=== PATIENT | female | born 1990 | race Caucasian/White ===

== ENCOUNTER 2021-07-06 11:36 | Emergency (ER) | payer OTHER ==
[~2021-07-06] VITALS: Ht 160 cm; Wt 69.0 kg
[2021-07-06 11:39] VITALS: BP 144/96
[2021-07-06 12:04] LABS: BASOPHILS % (AUTO) 0.4 % (0-1); EOSINOPHILS # (AUTO) 0.3 X10'3 (0-0.9); EOSINOPHILS % (AUTO) 3.7 % (0-6); HEMATOCRIT 42.8 % (35.0-45.0); HEMOGLOBIN 14.4 g/dl (12.0-16.0); LYMPHOCYTES # (AUTO) 1.9 X10'3 (1.1-4.8); LYMPHOCYTES % (AUTO) 22.7 % (21-51); MEAN CORPUSCULAR HEMOGLOBIN 30.5 PG (27.0-31.0); MEAN CORPUSCULAR HGB CONC 33.6 g/dL (33.0-36.5); MEAN CORPUSCULAR VOLUME 90.6 FL (78-98); MEAN PLATELET VOLUME 7.3 FL (7.4-10.4); MONOCYTES # (AUTO) 0.4 X10'3 (0-0.9); MONOCYTES % (AUTO) 5.3 % (2-12); NEUTROPHILS # (AUTO) 5.7 X10'3 (1.8-7.7); NEUTROPHILS % (AUTO) 67.9 % (42-75); PLATELET COUNT 306 X10'3 (140-440); RED BLOOD COUNT 4.72 X10'6 (4.20-5.60); RED CELL DISTRIBUTION WIDTH 12.8 % (11.5-14.5); WHITE BLOOD COUNT 8.3 X10'3 (4.5-11.0)
[2021-07-06 12:19] LABS: ALANINE AMINOTRANSFERASE 32 U/L (12-78); ALBUMIN 4.5 G/DL (3.4-5.0); ALBUMIN/GLOBULIN RATIO 1.2 (1.1-1.5); ALKALINE PHOSPHATASE 90 IU/L (46-116); ANION GAP 9 (8-16); ASPARTATE AMINO TRANSFERASE 23 U/L (10-37); BILIRUBIN,TOTAL 0.6 MG/DL (0.1-1.0); BLOOD UREA NITROGEN 11 MG/DL (7-18); BUN/CREATININE RATIO 12.2 (6.6-38.0); CALCIUM 9.5 MG/DL (8.5-10.1); CHLORIDE 102 MMOL/L (99-107); GLUCOSE 92 MG/DL (70-104); POTASSIUM 3.9 MMOL/L (3.5-5.1); SODIUM 137 MMOL/L (135-145); TOTAL CARBON DIOXIDE 25.8 MMOL/L (24-32); TOTAL PROTEIN 8.3 G/DL (6.4-8.2); eGFR 73 ML/MIN
== END 2021-07-06 13:59 | disposition home or self-care (01) ==
LOC: ER 11:36
DX: S06.0X1A Concussion with loss of consciousness of 30 minutes or less, initial encounter (principal); R55 Syncope and collapse; Z72.89 Other problems related to lifestyle; X58.XXXA Exposure to other specified factors, initial encounter; Y93.89 Activity, other specified; Y92.89 Other specified places as the place of occurrence of the external cause; Y99.8 Other external cause status
CPT/HCPCS: 36415; 70450; 71045; 80053; 83880; 84484; 85025; 93005; 99285

== ENCOUNTER 2021-07-08 16:46 | Emergency (ER) | payer OTHER ==
[~2021-07-08] VITALS: Ht 160 cm; Wt 65.8 kg
[2021-07-08] MEDS ORDERED: morphine 2 MG/ML inj. syringe IV PRN (17:05)
[2021-07-08] MEDS ORDERED: ondansetron/PF 4mg/2ml inj IV ONE ×2 (17:05→20:05)
[2021-07-08] MEDS ORDERED: normal saline 1000ML IV soln IVB ONE ×2 (17:05→18:40)
[2021-07-08 17:48] LABS: BASOPHILS % (AUTO) 0.2 % (0-1); EOSINOPHILS # (AUTO) 0.3 X10'3 (0-0.9); HEMATOCRIT 45.2 % (35.0-45.0); HEMOGLOBIN 15.4 g/dl (12.0-16.0); LYMPHOCYTES # (AUTO) 0.4 X10'3 (1.1-4.8); LYMPHOCYTES % (AUTO) 2.4 % (21-51); MEAN CORPUSCULAR HEMOGLOBIN 30.4 PG (27.0-31.0); MEAN CORPUSCULAR HGB CONC 34.1 g/dL (33.0-36.5); MEAN CORPUSCULAR VOLUME 89.2 FL (78-98); MEAN PLATELET VOLUME 7.5 FL (7.4-10.4); MONOCYTES # (AUTO) 0.4 X10'3 (0-0.9); MONOCYTES % (AUTO) 2.7 % (2-12); NEUTROPHILS # (AUTO) 14.3 X10'3 (1.8-7.7); NEUTROPHILS % (AUTO) 92.7 % (42-75); PLATELET COUNT 245 X10'3 (140-440); RED BLOOD COUNT 5.07 X10'6 (4.20-5.60); RED CELL DISTRIBUTION WIDTH 12.7 % (11.5-14.5); WHITE BLOOD COUNT 15.4 X10'3 (4.5-11.0)
[2021-07-08 18:05] LABS: ALANINE AMINOTRANSFERASE 38 U/L (12-78); ALBUMIN 4.5 G/DL (3.4-5.0); ALBUMIN/GLOBULIN RATIO 1.4 (1.1-1.5); ALKALINE PHOSPHATASE 85 IU/L (46-116); ANION GAP 16 (8-16); ASPARTATE AMINO TRANSFERASE 30 U/L (10-37); BILIRUBIN,TOTAL 0.9 MG/DL (0.1-1.0); BLOOD UREA NITROGEN 15 MG/DL (7-18); BUN/CREATININE RATIO 17.9 (6.6-38.0); CALCIUM 9.3 MG/DL (8.5-10.1); CHLORIDE 103 MMOL/L (99-107); CREATININE 0.84 MG/DL (0.40-0.90); GLUCOSE 97 MG/DL (70-104); LIPASE 63 U/L (73-393); SODIUM 143 MMOL/L (135-145); TOTAL CARBON DIOXIDE 23.9 MMOL/L (24-32); TOTAL PROTEIN 7.8 G/DL (6.4-8.2); eGFR 79 ML/MIN
[2021-07-08] MEDS ORDERED: ketorolac tromethamine 15mg/ml inj. IV ONE (18:35)
[2021-07-08 19:03] LABS: PLATELET ESTIMATE NORMAL; TOTAL CELLS COUNTED 100
[2021-07-08] MEDS ORDERED: PROM12.512 PO (19:26)
[2021-07-08 21:27] VITALS: BP 128/76
== END 2021-07-08 21:00 | disposition home or self-care (01) ==
LOC: ER 16:47
DX: R11.2 Nausea with vomiting, unspecified (principal); R55 Syncope and collapse; R51.9 Headache, unspecified
CPT/HCPCS: 36415; 70450; 80053; 83690; 85007; 85025; 96374; 96375; 96376; 99284; J1885; J2270; J2405; J7030; 96361